=== PATIENT | female | born 1945 | race Caucasian/White ===

== ENCOUNTER 2016-05-27 07:39 | Outpatient (CLI) | payer MEDICARE, BC | END 2016-05-27 07:40 | DX: R03.0 Elevated blood-pressure reading, without diagnosis of hypertension (principal); E78.9 Disorder of lipoprotein metabolism, unspecified; M85.80 Other specified disorders of bone density and structure, unspecified site ==

== ENCOUNTER 2017-05-19 09:12 | Outpatient (CLI) | payer MEDICARE, BC ==
--- NOTE | 2017-05-19 12:26 | XRAY Report ---
THREE VIEW RIGHT SHOULDER: 05/19/2017 CLINICAL INDICATION: Numbness, tingling, decreased range of motion. FINDINGS: Frontal, oblique, scapular Y views of the right shoulder demonstrate no evidence of fracture or dislocation. The joint spaces are preserved. No radiopaque foreign body is seen in the soft tissues. IMPRESSION: NORMAL RIGHT SHOULDER. TD: 05/19/2017 12:25
== END 2017-05-19 09:13 | disposition home or self-care (01) ==
LOC: DI 09:12
PROVIDERS: ATTEND Family Medicine
DX: M75.101 Unspecified rotator cuff tear or rupture of right shoulder, not specified as traumatic (principal)

== ENCOUNTER 2017-05-28 08:00 | Outpatient (CLI) | payer MEDICARE, BC ==
[2017-05-28 12:44] LABS: BILIRUBIN,URINE NEGATIVE (NEGATIVE); GLUCOSE, URINE (UA) NEGATIVE (NEGATIVE); KETONES,URINE (UA) NEGATIVE (NEGATIVE); LEUKOCYTE ESTERASE, URINE NEGATIVE (NEGATIVE); NITRITE,URINE NEGATIVE (NEGATIVE); OCCULT BLOOD,URINE NEGATIVE (NEGATIVE); PH,URINE 6.5 PH (5.0-7.5); PROTEIN,URINE NEGATIVE (NEGATIVE); UROBILINOGEN,URINE 0.2 (NORMAL) E.U./dL (NORMAL)
[2017-05-28 12:51] LABS: CLARITY,URINE CLEAR (CLEAR)
[2017-05-28 12:52] LABS: AMORPHOUS SEDIMENT,UR Moderate /LPF; BACTERIA,URINE Few /HPF (None Seen); RBC,URINE 0-5 /HPF (0-5); SQUAMOUS EPITHELIAL CELL,UR FEW Squamous (<= Few)
== END 2017-05-28 08:01 | disposition home or self-care (01) ==
LOC: LAB.N 08:00
PROVIDERS: ATTEND Obstetrics & Gynecology
DX: N95.0 Postmenopausal bleeding (principal); N39.3 Stress incontinence (female) (male)
CPT/HCPCS: 81001

== ENCOUNTER 2017-05-30 09:52 | Outpatient (CLI) | payer MEDICARE, BC ==
--- NOTE | 2017-06-02 12:02 | DEXA Report ---
DEXA SCAN: 05/30/2017 INDICATION: Screening. TECHNIQUE: Dual energy x-ray absorptiometry (DXA) was performed on a [employer] Certified system. Regions measured are the AP spine, femoral neck, and, if needed, forearm. COMPARISON: None. In accordance with the International Society for Clinical Densitometry (ISCD) guidelines, data from previous exams may be reanalyzed using current recommendations and techniques. This is done to allow a more accurate basis for comparison with the current study. FINDINGS: The data for the lumbar spine is as follows: REGION BMD (g/cm/cm) T-SCORE Z-SCORE L1 0.923 -1.7 0.0 L2 0.970 -1.9 -0.2 L3 1.021 -1.5 0.3 L4 1.116 -0.7 1.0 TOTAL 1.013 -1.4 0.4 NOTE: All evaluable vertebrae are used for classification. The data for the hip is as follows: REGION BMD (g/cm/cm) T-SCORE Z-SCORE Neck 0.842 -1.4 0.3 TOTAL 0.883 -1.0 0.5 NOTE: The femoral neck or total proximal femur, whichever is lowest, is used for classification. IMPRESSION: THE WHO CLASSIFICATION FOR THE LUMBAR SPINE BASED ON THE INTERNATIONAL REFERENCE STANDARD IS OSTEOPENIA. THE WHO CLASSIFICATION FOR THE FEMORAL NECK BASED ON THE INTERNATIONAL REFERENCE STANDARD IS OSTEOPENIA. THE FRACTURE RISK IS INCREASED. RECOMMENDATION: Patients with diagnosis of osteoporosis or osteopenia should have regular bone mineral density assessment. For those eligible for Medicare, routine testing is allowed once every 2 years. Testing frequency can be increased for patients who have rapidly progressing disease or for those who are receiving medical therapy to restore bone mass. COMMENT: World Health Organization (WHO) definitions for osteoporosis and osteopenia: NORMAL BMD: T-score at 1.0 or higher, fracture risk is low. OSTEOPENIA BMD: T-score between 1.0 and -2.5, fracture risk is increased. OSTEOPOROSIS BMD: T-score at 2.5 or lower, fracture risk high. National Osteoporosis Foundation recommends: 1. Obtain adequate dietary calcium (at least 1200 mg per day) and vitamin D (400 -800 international units per day). 2. Participate, as appropriate, in regular weightbearing and muscle- strengthening exercise. 3. Avoid tobacco use and reduce alcohol and caffeine intake. 4. For more detailed information see the website at www.NOF.org. MTDD
== END 2017-05-30 09:53 | disposition home or self-care (01) ==
LOC: DI 09:52
PROVIDERS: ATTEND Family Medicine
DX: M85.89 Other specified disorders of bone density and structure, multiple sites (principal)
CPT/HCPCS: 77080

== ENCOUNTER 2017-05-31 11:14 | Outpatient (CLI) | payer MEDICARE, BC ==
--- NOTE | 2017-06-02 10:19 | Ultrasound Report ---
EXAM: PELVIC ULTRASOUND EXAM DATE: 05/31/2017 12:44 PM. CLINICAL HISTORY: Postmenopausal bleeding. COMPARISON: None. TECHNIQUE: Realtime transabdominal pelvic scan performed to identify the uterus and adnexa and as an overview of other pelvic structures, followed by transvaginal scan to provide greater detail of the u terus and adnexa, with static image documentation. FINDINGS: Uterus: 5.9 x 3.3 x 2 cm, volume 20.3 cc. Anteverted position. Heterogeneous overall echotexture. Masses: There is a shadowing hyperechoic echoic focus in the right fundal submucosal area, approximat melida 2 x 5 mm, suggesting calcification, uncertain clinical significance. Otherwise, no uterine mass o r fibroids identified. Endometrium: There is focal hypovascular thickened endometrium in the body area to 5.5 mm in thickne ss with fundal noncomplex endometrial fluid, 3.7 mm in thickness. The endometrium in thickness in the fundal area measured 3.2 mm in thickness; there are 2 polypoid-like nodules with basal blood flow in the posterior wall of the endometrium in the lower body or lower uterine segment, 4.3 mm and 6.7 mm and noncomplex fluid in the lower uterine segment, approximately 4.3 mm in thickness. Cervix: Unremarkable. Right Ovary: Not visualized; no adnexal mass identified. Left Ovary: 1.8 x 1.2 x 1 cm, volume 1.1 cc. Unremarkable echotexture; limited exam of the blood flow , likely due to the body habitus. Free Fluid: Minimal to small amount of noncomplex fluid. IMPRESSION: 1. Hypovascular polypoid nodules in the lower uterine segment endometrium and focal thickened endomet rium in the body area with endometrial fluid accumulation, suggesting nonspecific benign versus malig nant hypertrophic process, endometrial cancer; recommend clinical follow-up. 2. Right ovary cannot be visualized, likely due to the body habitus. Negative for right adnexal mass. 3. The visualized left ovary demonstrates no mass or cystic mass. [facility] Referring Provider Line: [phone] SITE ID: [id number]
== END 2017-05-31 11:15 | disposition home or self-care (01) ==
LOC: DI 11:14
PROVIDERS: ATTEND Obstetrics & Gynecology
DX: R93.8 Abnormal findings on diagnostic imaging of other specified body structures (principal); N84.0 Polyp of corpus uteri
CPT/HCPCS: 76830; 76856

== ENCOUNTER 2017-07-14 11:22 | Outpatient (CLI) | payer MEDICARE, BC ==
[2017-07-14 12:03] LABS: BASOPHILS % (AUTO) 0.5 %; EOSINOPHILS % (AUTO) 0.8 %; HGB - HEMOGLOBIN 14.2 g/dL (12.0-16.0); LYMPHOCYTES # (AUTO) 1.4 10^3/uL (1.5-3.5); LYMPHOCYTES % (AUTO) 21.7 %; MEAN CORPUSCULAR HEMOGLOBIN 30.1 pg (27.0-31.0); MEAN CORPUSCULAR HGB CONC 33.5 g/dL (32.0-36.0); MEAN CORPUSCULAR VOLUME 89.9 fL (81.0-99.0); MEAN PLATELET VOLUME 8.6 fL (7.9-10.8); MONOCYTES # (AUTO) 0.6 10^3/uL (0.0-1.0); MONOCYTES % (AUTO) 8.7 %; NEUTROPHILS # (AUTO) 4.5 10^3/uL (1.5-6.6); NEUTROPHILS % (AUTO) 68.3 %; PLT - PLATELET COUNT 190 10^3/uL (130-450); RED CELL DISTRIBUTION WIDTH 13.4 % (12.0-15.0); WHITE BLOOD COUNT 6.6 x10^3/uL (4.8-10.8)
[2017-07-14 12:44] LABS: BILIRUBIN,URINE NEGATIVE (NEGATIVE); GLUCOSE, URINE (UA) NEGATIVE (NEGATIVE); KETONES,URINE (UA) NEGATIVE (NEGATIVE); LEUKOCYTE ESTERASE, URINE NEGATIVE (NEGATIVE); NITRITE,URINE NEGATIVE (NEGATIVE); OCCULT BLOOD,URINE NEGATIVE (NEGATIVE); PROTEIN,URINE NEGATIVE (NEGATIVE); UROBILINOGEN,URINE 0.2 (NORMAL) E.U./dL (NORMAL)
[2017-07-14 12:46] LABS: CLARITY,URINE CLEAR (CLEAR)
== END 2017-07-14 11:23 | disposition home or self-care (01) ==
LOC: LAB 11:22
PROVIDERS: ATTEND Obstetrics & Gynecology
DX: Z01.812 Encounter for preprocedural laboratory examination (principal); N95.0 Postmenopausal bleeding; D25.9 Leiomyoma of uterus, unspecified
CPT/HCPCS: 36415; 81003; 85025; 86850; 86900; 86901

== ENCOUNTER 2017-07-16 08:25 | Day surgery (SDC) | payer MEDICARE, BC ==
--- NOTE | 2017-07-14 13:22 | PREOP HISTORY & PHYSICAL ---
DATE OF SERVICE: 07/16/2017 Physician: Harjeet Thacker MD PREOPERATIVE HISTORY AND PHYSICAL ON 07/14/2017 FOR ANTICIPATED DATE OF 07/16/2017 DIAGNOSIS: Postmenopausal bleeding; nodular growth in endometrium/endocervical canal. INTENDED PROCEDURES: Hysteroscopy with polypectomy/myomectomy; MyoSure required; dilatation and curettage. HISTORY: Patient is a 71-year-old 1, para 1 woman who had a history of postmenopausal bleeding, a brown-reddish discharge. Patient was on Vagifem at the time of the bleeding episode. She underwent an ultrasound that found a 5.5 mm endometrial thickening and 3 mm of fluid in the cavity. There were 2 polypoid nodules with basilar blood flow in the posterior wall and lower uterine segment. The nodules were approximately 5-6 cm in diameter. There was no ovarian pathology noted. Endometrial biopsy was suggested but declined. Given postmenopausal bleeding and endometrial changes, a tissue diagnosis is required. We discussed the benefits (better detection rate for endometrial malignancy and hyperplasia); the risks (blood loss, transfusion, infection, perforation, and fluid transfusion) of hysteroscopy, and alternative procedures such as endometrial biopsy. After reading several pamphlets and looking online, the patient has decided to move forward with hysteroscopy. Patient began menarche at 17 and had polyuria prior to menopause in her mid 50s. She used oral contraceptives for 15 years. Her last Pap in 2012 was normal. PAST MEDICAL HISTORY: Patient occasionally has bouts of elevated blood pressure without medication. One vaginal delivery of a 7 pound 6 ounce boy. No history of cardiovascular or chronic disease. ALLERGIES: MEDICATIONS 1. Multiple vitamins. 2. Iron. REVIEW OF SYSTEMS CONSTITUTIONAL: Negative. HEENT: Negative. CARDIOVASCULAR: Negative. RESPIRATORY: Negative. GASTROINTESTINAL: Negative. GENITOURINARY: Reference HPI. MUSCULOSKELETAL: Negative. NEUROLOGIC: Negative. PSYCHOLOGIC: Negative. FAMILY HISTORY: Breast cancer in sister at 55 and at 70. No diabetes. Cardiovascular disease, father. Hypertension, father. Confirmed no easy bleeding tendencies or thrombophilia. SOCIAL HISTORY: . No drug, tobacco, or alcohol use. Sexually active. PHYSICAL EXAMINATION GENERAL: Well groomed, pleasant. VITAL SIGNS: Posted. HEENT: Supple neck, no thyromegaly. Dentition in good repair. LUNGS: Clear to auscultation. CARDIOVASCULAR: Regular. No murmur, no gallop. BREASTS: Prior exam negative. Patient declines exam today. ABDOMEN: Flat. No tenderness or organomegaly noted. GENITOURINARY: Reference office exam. Mild vulvar atrophy and vaginal atrophy. CERVIX: No cervical lesion. No cervical motion tenderness. UTERUS: Normal size. ADNEXA: No masses. Reference ultrasound. EXTREMITIES: Nonedematous, patient has coolness and paleness in fingertips, possibly Raynaud's. NEUROLOGIC: Grossly intact. MUSCULOSKELETAL: No nodules or tenderness. Normal range of motion. PREOP LABS: Pending. ASSESSMENT: Patient reports postmenopausal bleeding and has endometrial changes evident on ultrasound. Tissue diagnosis is required. Patient desires the most assured method of diagnosis and has chosen hysteroscopy. PLAN: Hysteroscopy with MyoSure excision of nodular growth and possibly lining of the uterus. Risks, benefits, and informed consent completed. Antibiotics not required. TD: 07/14/2017 12:09
[2017-07-16] MEDS ORDERED: LACTATED RINGERS 1,000 ML IV ONE (08:37)
[2017-07-16] MEDS ORDERED: ESTROGENS, CONJUGATED CREAM 30 GM TUBE ONE (11:40)
[2017-07-16] MEDS ORDERED: ESTROGENS, CONJUGATED CREAM 30 GM TUBE VG ONE (11:44)
--- NOTE | 2017-07-16 12:05 | OPERATIVE REPORT ---
Operative Report - General Procedure Date: 07/16/17 Planned Procedure: Diagnostic hysteroscopy, probable excision of intrauterine masses; possible Pre-Op Diagnosis: Postmenopausal bleeding; intracavitary masses/nodules on ultrasound; stenot Procedure Performed: Ultrasound-guided dilation of the cervix; hysteroscopy with Myosure hysteroscopic excision of 2 small endometrial nodules/polyps Post Op Diagnosis: 2 polypoid intracavitary masses, (about 5 mm apiece), Await pathology;: Hua - Procedure Note Primary Surgeon: MD Kirstie Anesthesia Provider: Arthur Elkins certified nurse lead military analyst Anesthesia Technique: General ET tube Pathology: Endometrial polyp shavings IV Fluids (mL): 850 Estimated Blood Loss (mL): 25 Urine Output (mL): 0 Complications: None
--- NOTE | 2017-07-16 12:33 | Ultrasound Report ---
INTRAOPERATIVE PELVIC ULTRASOUND: 07/16/2017 CLINICAL INDICATION: Intraoperative guidance. TECHNIQUE/FINDINGS: Ultrasound was provided to Dr. Rodriguez for intraoperative guidance. Four spot images were obtained. IMPRESSION: INTRAOPERATIVE IMAGING FOR DR. RODRIGUEZ. TD: 07/16/2017 12:31
[2017-07-16 13:08] VITALS: BP 125/78
[2017-07-16] MEDS ORDERED: DEXAMETHASONE 4 MG/ML VIAL IVP ONE (15:14)
[2017-07-16] MEDS ORDERED: PROPOFOL 200 MG/20 ML VIAL IVP ONE (15:14)
[2017-07-16] MEDS ORDERED: KETOROLAC 30 MG/ML VIAL IVP ONE (15:14)
[2017-07-16] MEDS ORDERED: fentaNYL 100 MCG/2 ML VIAL IVP ONE (15:14)
[2017-07-16] MEDS ORDERED: MIDAZOLAM 2 MG/2 ML VIAL IVP ONE (15:14)
[2017-07-16] MEDS ORDERED: ONDANSETRON 4 MG/2 ML VIAL IVP ONE (15:14)
--- NOTE | 2017-07-16 17:43 | OPERATIVE REPORT ---
DATE OF SERVICE: 07/16/2017 Physician: Harjeet Thacker MD PREOPERATIVE DIAGNOSES 1. Postmenopausal bleeding. 2. Intracavitary masses/nodules on ultrasound. 3. Stenotic cervix. POSTOPERATIVE DIAGNOSES 1. Two polypoid intracavitary polypoid growths, await pathology. 2. Intracavitary masses/nodules on ultrasound. PROCEDURES 1. Ultrasound-guided dilation of the endocervix. 2. Hysteroscopy with hysteroscopic excision of intracavitary nodules using MyoSure. SURGEON: Harjeet Thacker MD, FACOG, FICS ANESTHESIA: Arthur Amin, certified nurse heel trimmer ANESTHESIA TYPE: General, ET tube placed. BLOOD LOSS: 25 mL or less. INTRAVENOUS FLUIDS: 850, crystalloid. URINE OUTPUT: Not known, patient voided prior to beginning procedure. HYSTEROSCOPY FLUID DEFICIT: 550, measured. DRAINS: None. Uterine packing enriched with estrogen placed. FINDINGS: External genitalia appeared to be normal, except for atrophy and narrow introitus. There was a grade 1` cystorectocele noted with uterine descent. The Anteverted small uterus and cervical barrel was palpated in the midline . Contained within right vaginal fornix was a mucosal dimple unaligned with the cervical barrel. The actual cervical os was completely covered with vaginal mucosa and stenosed completely closed. Within the uterine cavity, there were 2 small polypoid masses that appeared to be cauliflowers in the lower uterine segment.. Await final pathology. The upper portion of the uterine cavity was not clearly visualized PREOP CONFERENCE: Prior to procedure, I met with the patient and her and discussed her ultrasound findings and history of postmenopausal bleeding, and the need for tissue diagnosis. Since her cervix was severely stenotic, hysteroscopy seemed to be the safest and most effective option. We reviewed the risks inclusive of blood loss hemorrhage, transfusion, infection, perforation, fluid embolization and inconclusive results. All the informed consent paperwork had been previously signed and patient had no further questions. TECHNIQUE: Patient was taken to the operating room and placed in supine position for administration of general anesthesia. She was uneventfully induced and intubated. She was moved to the high dorsal lithotomy position on candycane stirrups.She was prepped and draped in the customary sterile fashion. Vann was not necessary because patient emptied her bladder immediately prior to coming to the operating room.Time-out briefing was done per protocol. We began hysteroscopy with a detailed inspection and palpation of the vagina cervix and uterus. Care was taken to determine the axis of the cervix and its relationship to the uterine body. The upper vagina was carefully inspected to determine the most likely position of the cervical os. Additionally, a sounding probe was used to define the lower limits of the vagina in relationship to the cervical barrel. Clamshell speculum was placed and the cervix and upper vagina visualized. The right vaginal fornix dimple was judged not to be a likely location for the cervical os. At the distal cervical barrel , the apex was covered with vaginal mucosa with a transverse fold slightly beyond the diameter. Using Metzenbaum scissors and Kitner this flap of vaginal mucosa was from the apex of the cervical barrel and gently rolled back to reveal a small stenotic dimple. Using a fine probe this dimple was gently developed to accept the probe along the anticipated axis of the cervical barrel. Next ultrasound was brought to the operating room to inspect the position of the fine probe before further dilation was attempted. Ultrasound images demonstrated the sound was clearly in middle of the cervix on her trajectory leading to the endometrial cavity. A single-tooth tenaculum was placed on the anterior cervical lip. The fine probe was removed and then using Hegar probes in a sequential fashion this passageway was further dilated. Using Hegar dilators, the os was uneventfully dilated to 6. Cervical mucus was seen to extrude during the dilation process. Again the ultrasound was brought to the operating room and the probe position assessed. The #6 Hegar probe passed through mid cervix and into the lower uterine segment. Under direct visualization the 30 video hysteroscope was inserted through the endocervical canal and into the lower uterine segment. The 2 polypoid growths documented on prior ultrasound were visualized and photographed. The mild sure was then introduced through the central operating port of the hysteroscope and the 2 aforementioned polyps removed in total. The hysteroscope then was inserted into the cavity but visualization was poor. There was fibrous debris. My assure removal of the 2 nodules mentioned in ultrasound could not be safely accomplished. The procedure was then concluded. All instruments were removed. All sponge needle and instrument counts were confirmed as correct. Patient was uneventfully aroused from general anesthesia and taken to the recovery room in good condition. The patient did well postoperatively requiring little more than Motrin for pain control. She was given complete warning sign and callback instructions. She will be seen in 2 weeks to review pathology. TD: 07/16/2017 13:12 MARION
== END 2017-07-16 08:26 | disposition home or self-care (01) ==
LOC: SDS 08:25
PROVIDERS: ATTEND Obstetrics & Gynecology
PROC: 0UDB8ZX Extraction of Endometrium, Via Natural or Artificial Opening Endoscopic, Diagnostic (ICD-10-PCS; 2017-07-16)
PROC: 0UBC8ZX Excision of Cervix, Via Natural or Artificial Opening Endoscopic, Diagnostic (ICD-10-PCS; principal; 2017-07-16 09:30)
DX: N84.1 Polyp of cervix uteri (principal); N95.0 Postmenopausal bleeding; N88.2 Stricture and stenosis of cervix uteri
CPT/HCPCS: 58558; 76856; A9270; J7120; 88305

== ENCOUNTER → 2018-01-19 | Outpatient (CLI) | payer MEDICARE, BC ==
[2018-01-19 12:42] LABS: CALCIUM 9.1 mg/dL (8.5-10.3); CREATININE 0.7 mg/dL (0.4-1.0)
== END ==
LOC: LAB.WCP 08:02
PROVIDERS: ATTEND Family Medicine
DX: I10 Essential (primary) hypertension (principal)
CPT/HCPCS: 36415; 80048

== ENCOUNTER 2018-01-30 10:08 | Outpatient (CLI) | payer MEDICARE, BC ==
--- NOTE | 2018-02-02 08:25 | Mammography Report ---
Reason: SCREENING MAMMO Procedure Date: 01/30/2018 Accession Number: [id number] / [id number] Procedure: MGN - Screening Mammo Dig Bilat CPT Code: FULL RESULT: EXAM: Screening Mammo Dig Bilat DATE: 01/30/2018 10:28 AM CLINICAL HISTORY: 72-year-old female with family history of breast cancer in a sister around the age of 60, an aunt around the age of 60 and multiple cousins for screening. TECHNIQUE: Bilateral CC, laterally exaggerated CC, MLO views were obtained. COMPARISON: 01/08/2017, 12/07/2015, 09/28/2014, 10/07/2013. FINDINGS: The breasts demonstrate heterogeneously dense fibroglandular parenchyma bilaterally. No suspicious masses, clustered microcalcifications, or regions of architectural distortion are identified. IMPRESSION: Negative examination RECOMMENDATION: Routine annual screening unless otherwise clinically indicated. BIRADS CATEGORY 1: Negative STANDARD QUALIFYING STATEMENTS: 1. This examination was reviewed with the aid of Computer-Aided Detection (CAD). 2. A negative or benign imaging report should not delay biopsy if clinically suspicious findings are present. Consider surgical consultation if warranted. More than 5% of cancers are not identified by imaging. 3. Dense breasts may obscure an underlying neoplasm. 4. This examination was reviewed without the aid of 3D breast imaging (tomosynthesis).
== END 2018-01-30 10:09 | disposition home or self-care (01) ==
LOC: DI.N 10:08
DX: Z12.31 Encounter for screening mammogram for malignant neoplasm of breast (principal); Z80.3 Family history of malignant neoplasm of breast
CPT/HCPCS: 77067

== ENCOUNTER 2018-08-11 07:55 | Outpatient (CLI) | payer MEDICARE, BC ==
[2018-08-11 13:39] LABS: BASOPHILS % (AUTO) 0.9 %; EOSINOPHILS # (AUTO) 0.1 10^3/uL (0.0-0.7); EOSINOPHILS % (AUTO) 1.8 %; HGB - HEMOGLOBIN 13.3 g/dL (12.0-16.0); LYMPHOCYTES # (AUTO) 1.4 10^3/uL (1.5-3.5); LYMPHOCYTES % (AUTO) 28.8 %; MEAN CORPUSCULAR HEMOGLOBIN 30.2 pg (27.0-31.0); MEAN CORPUSCULAR HGB CONC 33.1 g/dL (32.0-36.0); MEAN CORPUSCULAR VOLUME 91.2 fL (81.0-99.0); MEAN PLATELET VOLUME 9.2 fL (7.9-10.8); MONOCYTES # (AUTO) 0.4 10^3/uL (0.0-1.0); MONOCYTES % (AUTO) 8.7 %; NEUTROPHILS # (AUTO) 2.9 10^3/uL (1.5-6.6); NEUTROPHILS % (AUTO) 59.8 %; PLT - PLATELET COUNT 190 10^3/uL (130-450); RED BLOOD COUNT 4.41 10^6/uL (4.20-5.40); RED CELL DISTRIBUTION WIDTH 13.5 % (12.0-15.0); WHITE BLOOD COUNT 4.9 x10^3/uL (4.8-10.8)
[2018-08-11 13:57] LABS: ALBUMIN 4.2 g/dL (3.2-5.5); ALBUMIN/GLOBULIN RATIO 1.6 (1.0-2.2); ALKALINE PHOSPHATASE 64 IU/L (42-121); ALT ALANINE AMINOTRANSFERASE 17 IU/L (10-60); AST ASPARTATE AMINOTRANSFERASE 24 IU/L (10-42); BILIRUBIN,TOTAL 0.8 mg/dL (0.2-1.0); BUN - BLOOD UREA NITROGEN 17 mg/dL (6-20); CALCIUM 9.3 mg/dL (8.5-10.3); CARBON DIOXIDE - CO2 29 mmol/L (21-32); CHLORIDE 103 mmol/L (101-111); CHOL/HDL RATIO 2.8 (<4.4); CHOLESTEROL 231 mg/dL; CREATININE 0.7 mg/dL (0.4-1.0); GFR - MDRD 83 (>89); GLUCOSE 92 mg/dL (70-100); HDL CHOLESTEROL 82 mg/dL; LDL CHOLESTEROL,CALCULATED 125 mg/dL; LDL/HDL RATIO 1.5 (<4.4); SODIUM 139 mmol/L (135-145); TOTAL PROTEIN 6.8 g/dL (6.7-8.2); VLDL CHOLESTEROL 24 mg/dL
== END 2018-08-11 07:56 | disposition home or self-care (01) ==
LOC: LAB.WCP 07:55
PROVIDERS: ATTEND Family Medicine
DX: I10 Essential (primary) hypertension (principal); E78.5 Hyperlipidemia, unspecified
CPT/HCPCS: 36415; 80053; 80061; 83721; 84443; 85025

== ENCOUNTER 2019-02-03 08:49 | Outpatient (CLI) | payer MEDICARE, BC ==
--- NOTE | 2019-02-03 10:02 | Mammography Report ---
Reason: screening mammo Procedure Date: 02/03/2019 Accession Number: [id number] / [id number] Procedure: MGN - Screening Mammo Dig Bilat CPT Code: Final Report FULL RESULT: EXAM: Screening Mammo Dig Bilat DATE: 02/03/2019 9:24 AM CLINICAL HISTORY: Screening encounter. Family history of breast cancer in a sister at the age of 60. TECHNIQUE: (B) - Bilateral CC and MLO views were obtained. COMPARISON: 01/30/2018 through 08/07/2009. PARENCHYMAL PATTERN: (A) - The breast(s) demonstrate(s) scattered fibroglandular densities. FINDINGS: There are no suspicious masses, calcifications, or areas of distortion. IMPRESSION: Negative examination. BI-RADS category 1. RECOMMENDATION: (ANNUAL) - Recommend routine annual screening mammography. BI-RADS CATEGORY: (1) - Negative. STANDARD QUALIFYING STATEMENTS: 1. This examination was not reviewed with the aid of Computer-Aided Detection (CAD). 2. A negative or benign imaging report should not preclude biopsy if clinically suspicious findings are present. 3. Dense breasts may obscure an underlying neoplasm. 4. This examination was reviewed without the aid of 3D breast imaging (tomosynthesis).
== END 2019-02-03 08:50 | disposition home or self-care (01) ==
LOC: DI.N 08:49
DX: Z12.31 Encounter for screening mammogram for malignant neoplasm of breast (principal); Z80.3 Family history of malignant neoplasm of breast
CPT/HCPCS: 77067

== ENCOUNTER 2020-03-22 07:26 | Outpatient (CLI) | payer MEDICARE, BC ==
[2020-03-22 11:58] LABS: BASOPHILS % (AUTO) 0.8 %; EOSINOPHILS # (AUTO) 0.1 10^3/uL (0.0-0.7); EOSINOPHILS % (AUTO) 1.5 %; HGB - HEMOGLOBIN 13.9 g/dL (12.0-16.0); LYMPHOCYTES # (AUTO) 1.4 10^3/uL (1.5-3.5); LYMPHOCYTES % (AUTO) 33.8 %; MEAN CORPUSCULAR HEMOGLOBIN 30.4 pg (27.0-31.0); MEAN CORPUSCULAR HGB CONC 32.9 g/dL (32.0-36.0); MEAN CORPUSCULAR VOLUME 92.6 fL (81.0-99.0); MEAN PLATELET VOLUME 11.5 fL (7.9-10.8); MONOCYTES # (AUTO) 0.4 10^3/uL (0.0-1.0); NEUTROPHILS # (AUTO) 2.1 10^3/uL (1.5-6.6); NEUTROPHILS % (AUTO) 52.6 %; PLT - PLATELET COUNT 196 10^3/uL (130-450); RED BLOOD COUNT 4.57 10^6/uL (4.20-5.40); RED CELL DISTRIBUTION WIDTH 12.6 % (12.0-15.0)
[2020-03-22 12:12] LABS: ALBUMIN 4.3 g/dL (3.2-5.5); ALBUMIN/GLOBULIN RATIO 1.7 (1.0-2.2); ALKALINE PHOSPHATASE 60 IU/L (42-121); ALT ALANINE AMINOTRANSFERASE 19 IU/L (10-60); AST ASPARTATE AMINOTRANSFERASE 26 IU/L (10-42); BILIRUBIN,TOTAL 0.9 mg/dL (0.2-1.0); BUN - BLOOD UREA NITROGEN 19 mg/dL (6-20); CALCIUM 9.5 mg/dL (8.5-10.3); CARBON DIOXIDE - CO2 28 mmol/L (21-32); CHLORIDE 106 mmol/L (101-111); CHOL/HDL RATIO 2.9 (<4.4); CHOLESTEROL 226 mg/dL; CREATININE 0.7 mg/dL (0.4-1.0); GLUCOSE 94 mg/dL (70-100); HDL CHOLESTEROL 78 mg/dL; LDL CHOLESTEROL,CALCULATED 123 mg/dL; LDL/HDL RATIO 1.6 (<4.4); SODIUM 140 mmol/L (135-145); TOTAL PROTEIN 6.8 g/dL (6.7-8.2); VLDL CHOLESTEROL 25 mg/dL
== END 2020-03-22 07:27 | disposition home or self-care (01) ==
LOC: LAB.N 07:26
PROVIDERS: ATTEND Family Medicine
DX: I10 Essential (primary) hypertension (principal); M85.80 Other specified disorders of bone density and structure, unspecified site; E78.5 Hyperlipidemia, unspecified
CPT/HCPCS: 36415; 80053; 80061; 83721; 84443; 85025

== ENCOUNTER 2020-06-20 08:23 | Outpatient (CLI) | payer MEDICARE, BC ==
--- NOTE | 2020-06-21 09:38 | Mammography Report ---
BILATERAL DIGITAL SCREENING MAMMOGRAM 3D/2D: 06/20/2020 CLINICAL: Family history of breast cancer. Routine screening. Comparison is made to exams dated: 02/03/2019 mammogram, 01/30/2018 mammogram, 01/08/2017 mammogram, 12/07/2015 mammogram, 09/28/2014 mammogram, and 10/07/2013 mammogram - [facility]. T he tissue of both breasts is heterogeneously dense. This may lower the sensitivity of mammography. No significant masses, calcifications, or other findings are seen in either breast. There has been no significant interval change. IMPRESSION: NEGATIVE There is no mammographic evidence of malignancy. A 1 year screening mammogram is recommended. This exam was interpreted at Station ID: [id number]. NOTE: For mammograms, a report in lay terms will be sent to the patient. Approximately 15% of breast malignancies will not be visualized mammographically. In the management of a palpable breast mass, a negative mammogram must not discourage biopsy of a clinically suspicious lesion. Electronically Signed By: Porfirio Conner M.D. [email or web address]:06/20/2020 09:02:14 ACR BI-RADS Category 1: Negative 3341F PARENCHYMAL PATTERN: (D) - The breast(s) demonstrate(s) heterogeneously dense fibroglandular bren lopez. BI-RADS CATEGORY: (1) - 1 RECOMMENDATION: (ANNUAL) - Recommend routine annual screening mammography. [id number] 1 year screening LATERALITY: (B)
== END 2020-06-20 08:24 | disposition home or self-care (01) ==
LOC: DI.N 08:23
DX: Z12.31 Encounter for screening mammogram for malignant neoplasm of breast (principal); Z80.3 Family history of malignant neoplasm of breast

== ENCOUNTER 2021-07-16 08:40 | Outpatient (CLI) | payer MEDICARE, BC ==
[2021-07-16 12:42] LABS: BASOPHILS % (AUTO) 0.9 %; EOSINOPHILS # (AUTO) 0.1 10^3/uL (0.0-0.7); EOSINOPHILS % (AUTO) 1.9 %; HCT - HEMATOCRIT 43.2 % (37.0-47.0); LYMPHOCYTES # (AUTO) 1.1 10^3/uL (1.5-3.5); LYMPHOCYTES % (AUTO) 26.6 %; MEAN CORPUSCULAR HEMOGLOBIN 30.4 pg (27.0-31.0); MEAN CORPUSCULAR HGB CONC 32.4 g/dL (32.0-36.0); MEAN CORPUSCULAR VOLUME 93.9 fL (81.0-99.0); MEAN PLATELET VOLUME 10.9 fL (7.9-10.8); MONOCYTES # (AUTO) 0.5 10^3/uL (0.0-1.0); MONOCYTES % (AUTO) 10.6 %; NEUTROPHILS # (AUTO) 2.6 10^3/uL (1.5-6.6); PLT - PLATELET COUNT 201 10^3/uL (130-450); WHITE BLOOD COUNT 4.3 x10^3/uL (4.8-10.8)
[2021-07-16 13:10] LABS: THYROID STIMULATING HORMONE 1.01 uIU/mL (0.34-5.60)
[2021-07-16 13:13] LABS: ALBUMIN 4.3 g/dL (3.2-5.5); ALBUMIN/GLOBULIN RATIO 1.6 (1.0-2.2); ALKALINE PHOSPHATASE 57 IU/L (42-121); ALT ALANINE AMINOTRANSFERASE 19 IU/L (10-60); AST ASPARTATE AMINOTRANSFERASE 25 IU/L (10-42); BILIRUBIN,TOTAL 0.7 mg/dL (0.2-1.0); BUN - BLOOD UREA NITROGEN 21 mg/dL (6-20); CALCIUM 9.7 mg/dL (8.5-10.3); CARBON DIOXIDE - CO2 29 mmol/L (21-32); CHLORIDE 103 mmol/L (101-111); CHOL/HDL RATIO 2.8 (<4.4); CHOLESTEROL 225 mg/dL; CREATININE 0.7 mg/dL (0.4-1.0); GFR - MDRD 82 (>89); GLUCOSE 74 mg/dL (70-100); HDL CHOLESTEROL 81 mg/dL; LDL CHOLESTEROL,CALCULATED 120 mg/dL; LDL/HDL RATIO 1.5 (<4.4); POTASSIUM 4.2 mmol/L (3.5-5.0); SODIUM 142 mmol/L (135-145); TRIGLYCERIDES 121 mg/dL; VLDL CHOLESTEROL 24 mg/dL
== END 2021-07-16 08:41 | disposition home or self-care (01) ==
LOC: LAB.N 08:40
PROVIDERS: ATTEND Family Medicine
DX: E78.5 Hyperlipidemia, unspecified (principal); I10 Essential (primary) hypertension
CPT/HCPCS: 36415; 80053; 80061; 83721; 84443; 85025

== ENCOUNTER 2021-08-08 12:06 | Emergency (ER) | payer MEDICARE, BC ==
[2021-08-08 12:31] LABS: BASOPHILS % (AUTO) 0.5 %; EOSINOPHILS % (AUTO) 0.2 %; HCT - HEMATOCRIT 42.4 % (37.0-47.0); HGB - HEMOGLOBIN 14.2 g/dL (12.0-16.0); LYMPHOCYTES # (AUTO) 0.8 10^3/uL (1.5-3.5); LYMPHOCYTES % (AUTO) 12.2 %; MEAN CORPUSCULAR HEMOGLOBIN 30.7 pg (27.0-31.0); MEAN CORPUSCULAR HGB CONC 33.5 g/dL (32.0-36.0); MEAN CORPUSCULAR VOLUME 91.6 fL (81.0-99.0); MEAN PLATELET VOLUME 10.2 fL (7.9-10.8); MONOCYTES # (AUTO) 0.3 10^3/uL (0.0-1.0); NEUTROPHILS % (AUTO) 81.8 %; PLT - PLATELET COUNT 198 10^3/uL (130-450); RED BLOOD COUNT 4.63 10^6/uL (4.20-5.40); RED CELL DISTRIBUTION WIDTH 12.3 % (12.0-15.0); WHITE BLOOD COUNT 6.2 x10^3/uL (4.8-10.8)
--- NOTE | 2021-08-08 12:31 | ED Physician Documentation ---
PD HPI ALTERED MENTAL STATUS - Stated complaint Stated Complaint: MEMORY LOSS - Chief complaint Chief Complaint: Neuro - Additional information Additional information: Patient is 75-year-old female presenting to the emergency department with acute altered mentation. Accompanied by who is present at bedside. Reports that approximately 10 AM today patient became acutely confused and disorientated. Was unable to remember the activity for the last 24 hours. No facial droop, slurring of speech or other focal or lateralizing neurologic signs reported by the patient's . No previous episodes to this in the past. Past medical significant for hypertension and dyslipidemia. Review of Systems Unable to obtain: AMS PD PAST MEDICAL HISTORY - Past Medical History Past Medical History: Yes Cardiovascular: Hypertension, High cholesterol Respiratory: None Endocrine/Autoimmune: None GI: GERD : Incontinence HEENT: Chronic vision loss Psych: None Musculoskeletal: Osteoarthritis, Other Derm: None - Past Surgical History General: Colonoscopy - Present Medications Home Medications: Ambulatory Orders Medication Instructions Recorded Confirmed Aspirin 81 mg PO DAILY 07/14/17 07/16/17 Calcium Carbonate/Vitamin D3 1 each PO TID 07/14/17 07/16/17 [Calcium 600 + Vit D 400 Tablet] Multivitamin [Multiple Vitamins] 1 each PO DAILY 07/14/17 07/16/17 [place]-3/Dha/Epa/Fish Oil [Fish Oil 1 each PO DAILY 07/14/17 07/16/17 1,000 mg Softgel] - Allergies Allergies/Adverse Reactions: Allergies Allergy/AdvReac Type Severity Reaction Status Date / Time No Known Drug Allergies Allergy Verified 07/14/17 11:33 - Social History Does the pt smoke?: No Smoking Status: Never smoker PD ED PE NORMAL - Vitals Vital signs reviewed: Yes - General General: No acute distress - HEENT HEENT: Atraumatic - Neck Neck: Supple, no meningeal sign - Cardiac Cardiac: RRR, No gallop - Respiratory Respiratory: No respiratory distress, Clear bilaterally - Abdomen Abdomen: Normal bowel sounds, Non tender - Female Female : Deferred - Rectal Rectal: Deferred - Derm Derm: Normal color - Extremities Extremities: No deformity - 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 No: Hyperacute T waves, T wave inversion Computer interpretation: Agree with computer - Labs Labs: Laboratory Tests 08/08/21 08/08/21 08/08/21 12:25 12:27 12:27 WBC 6.2 RBC 4.63 Hgb 14.2 Hct 42.4 MCV 91.6 MCH 30.7 MCHC 33.5 RDW 12.3 Plt Count 198 MPV 10.2 Neut # (Auto) 5.0 Lymph # (Auto) 0.8 L [place] # (Auto) 0.3 Eos # (Auto) 0.0 Baso # (Auto) 0.0 Absolute Nucleated RBC 0.00 Nucleated RBC % 0.0 PT INR VBG pH VBG pCO2 VBG pO2 VBG HCO3 VBG Total CO2 VBG O2 Saturation VBG Base Excess Sodium 140 Potassium 3.7 Chloride 103 Carbon Dioxide 27 Anion Gap 10.0 BUN 20 Creatinine 0.8 Estimated GFR (MDRD) 70 L Glucose 107 H POC Whole Bld Glucose 98 Calcium 9.8 Total Bilirubin 0.5 AST 27 ALT 23 Alkaline Phosphatase 62 Total Protein 7.4 Albumin 4.6 Globulin 2.8 Albumin/Globulin Ratio 1.6 Lipase 42 TSH Urine Color Urine Clarity Urine pH Ur Specific [place] Urine Protein Urine Glucose (UA) Urine Ketones Urine Occult Blood Urine Nitrite Urine Bilirubin Urine Urobilinogen Ur Leukocyte Esterase Ur Microscopic Review Urine Culture Comments Ethyl Alcohol SARS-CoV-2 (PCR) 08/08/21 08/08/21 08/08/21 12:45 12:45 12:45 WBC RBC Hgb Hct MCV MCH MCHC RDW Plt Count MPV Neut # (Auto) Lymph # (Auto) [place] # (Auto) Eos # (Auto) Baso # (Auto) Absolute Nucleated RBC Nucleated RBC % PT 12.3 INR 1.1 VBG pH VBG pCO2 VBG pO2 VBG HCO3 VBG Total CO2 VBG O2 Saturation VBG Base Excess Sodium Potassium Chloride Carbon Dioxide Anion Gap BUN Creatinine Estimated GFR (MDRD) Glucose POC Whole Bld Glucose Calcium Total Bilirubin AST ALT Alkaline Phosphatase Total Protein Albumin Globulin Albumin/Globulin Ratio Lipase TSH 0.91 Urine Color Urine Clarity Urine pH Ur Specific [place] Urine Protein Urine Glucose (UA) Urine Ketones Urine Occult Blood Urine Nitrite Urine Bilirubin Urine Urobilinogen Ur Leukocyte Esterase Ur Microscopic Review Urine Culture Comments Ethyl Alcohol < 5.0 SARS-CoV-2 (PCR) 08/08/21 08/08/21 08/08/21 12:45 12:49 13:45 WBC RBC Hgb Hct MCV MCH MCHC RDW Plt Count MPV Neut # (Auto) Lymph # (Auto) [place] # (Auto) Eos # (Auto) Baso # (Auto) Absolute Nucleated RBC Nucleated RBC % PT INR VBG pH 7.378 VBG pCO2 44.3 VBG pO2 29.5 VBG HCO3 25.5 VBG Total CO2 26.9 VBG O2 Saturation 61.0 VBG Base Excess 0.1 Sodium Potassium Chloride Carbon Dioxide Anion Gap BUN Creatinine Estimated GFR (MDRD) Glucose POC Whole Bld Glucose Calcium Total Bilirubin AST ALT Alkaline Phosphatase Total Protein Albumin Globulin Albumin/Globulin Ratio Lipase TSH Urine Color YELLOW Urine Clarity CLEAR Urine pH 6.5 Ur Specific [place] <=1.005 Urine Protein NEGATIVE Urine Glucose (UA) NEGATIVE Urine Ketones NEGATIVE Urine Occult Blood TRACE-INTA Urine Nitrite NEGATIVE Urine Bilirubin NEGATIVE Urine Urobilinogen 0.2 (NORMAL) Ur Leukocyte Esterase NEGATIVE Ur Microscopic Review NOT INDICATED Urine Culture Comments NOT INDICATED Ethyl Alcohol SARS-CoV-2 (PCR) NOT DETECTED PD MEDICAL DECISION MAKING - ED course Complexity details: reviewed old records, reviewed results, d/w patient, d/w data processing systems consultant ED course: Patient is 75-year-old female who presented to the emergency department with acute confusion as well as amnesia for the last 24 hours. Disorientated to time on arrival but otherwise no focal or lateralizing neurologic signs appreciated on exam. Normal blood sugar. Given that she was within 4 hours of the onset of her symptoms I initiated stroke protocol. CTA head and neck was obtained which was negative for any acute abnormality. Comprehensive labs and urine analysis were also negative for any abnormal finding. I consulted with both the Neurologic team at [facility] as well as with the telestroke neurologist. Per the recommendation we obtained a stat MRI which was negative for any indications of infarct. Patient's confusion and amnesia appeared to clear while in the emergency department. She was monitored for several hours and found to be resting comfortably and in no acute distress and with no further issues with her thinking or memory. At this time I will discharge for follow-up with primary care as needed. Otherwise clear return precautions and follow-up instructions were given prior to discharge. Departure - Departure Disposition: 01 Home, Self Care Clinical Impression: Altered mental status Comments: Thank you for allowing us to care for you today [facility]. I am very glad that you are feeling better. All the testing performed in the emergency department today including the blood work, EKG, urine analysis the CT scans of your head as well as the MRI did not show any acute abnormality. Please drink plenty of fluids and get plenty of rest. Please follow-up with your primary care doctor soon as possible. If anytime you develop any new or worsening symptoms or if you have recurrent episode of amnesia or clouded or confused thinking please return to the emergency department immediately for further evaluation and treatment.
[2021-08-08] MEDS ORDERED: IOVERSOL 320 100 ML VIAL IVP ONE ×2 (12:41→13:12)
[2021-08-08 12:47] LABS: ALBUMIN 4.6 g/dL (3.2-5.5); ALBUMIN/GLOBULIN RATIO 1.6 (1.0-2.2); BILIRUBIN,TOTAL 0.5 mg/dL (0.2-1.0); CALCIUM 9.8 mg/dL (8.5-10.3); CREATININE 0.8 mg/dL (0.4-1.0); POTASSIUM 3.7 mmol/L (3.5-5.0); TOTAL PROTEIN 7.4 g/dL (6.7-8.2)
--- NOTE | 2021-08-08 12:48 | CT Report ---
PROCEDURE: Head W/O Stroke Protocol INDICATIONS: Neuro deficit, acute, stroke suspected TECHNIQUE: Noncontrast 4.5 mm thick angled axial sections acquired from the foramen magnum to the vertex, with c oronal reformats. For radiation dose reduction, the following was used: automated exposure control, adjustment of mA and/or kV according to patient size. COMPARISON: FINDINGS: Image quality: Excellent. CSF spaces: Basal cisterns are patent. No extra-axial fluid collections. Ventricles are normal in size and shape. Brain: No midline shift. No intracranial masses or hemorrhage. Shankar-white matter interface is norm al. Skull and face: Calvarium and visualized facial bones are intact, without suspicious lesions. Sinuses: Visualized sinuses and mastoids are clear. IMPRESSION: No evidence of acute intracranial process. Above discussed with DONNY RODRIGUEZ at the time of dictation on 08/08/21 at 12:46 hours This study fulfills neurological imaging criteria for inclusion or exclusion of acute stroke therapie s based on available published neurological imaging guidelines. Reviewed by: Macho Ramirez MD on 08/08/2021 12:47 PM PDT Approved by: Macho Ramirez MD on 08/08/2021 12:47 PM PDT Station ID: [id number]
[2021-08-08 12:59] LABS: VBG BASE EXCESS 0.1 mmol/L (-2 - +2); VBG HCO3 25.5 mmol/L (23-28); VBG PCO2 44.3 mmHg (41-51); VBG PH 7.378 (7.31-7.41); VBG PO2 29.5 mmHg (25-47); VBG TOTAL CO2 26.9 mmol/L (24-29)
--- NOTE | 2021-08-08 13:03 | CT Report ---
PROCEDURE: ANGIO NECK W INDICATIONS: Acute memory loss CONTRAST: IV CONTRAST: Optiray 320 ml: 80 PO CONTRAST: *NO PO CONTRAST TECHNIQUE: After the administration of intravenous contrast, 1.5 mm axial sections acquired from the aortic arch to the [place]. Coronal 3-D maximum intensity projection (MIP) and/or volume rendering ref ormats were then performed. For radiation dose reduction, the following was used: automated exposur e control, adjustment of mA and/or kV according to patient size. COMPARISON: None. FINDINGS: Image quality: Excellent. Carotid system: The great vessels demonstrate a conventional anatomy as they arise from the aortic a rc. The origins of the common carotid arteries appear patent. The common carotid arteries demonstr ate normal calibers and courses. The bifurcation regions appear normal bilaterally. The internal ca rotid arteries demonstrate normal caliber and course. Posterior circulation: The origins of the vertebral arteries appear patent. The more superior porti ons of the vertebral arteries demonstrate normal course and caliber. They join to form a normal appe aring basilar artery. Soft tissues: Visualized neck soft tissues demonstrate no suspicious abnormalities. The thyroid is normal in size and there are no incidental findings. Bones: No suspicious bony lesions. Visualized cervical spine appears normally aligned. Moderate to severe cervical spondylitic change. IMPRESSION: Unremarkable CTA neck. Widely patent carotids. The estimate of stenosis included in the report of the imaging study was calculated using the NASCET method Above discussed with DONNY RODRIGUEZ at the time of dictation on 08/08/2021 at 1259 hours. CLINICAL RECOMMENDATION STATEMENTS: In patients <35 years with an ITN detected on CT, MRI, or extrathyroidal ultrasound, the Committee re commends further evaluation with dedicated thyroid ultrasound if the nodule is "e1 cm and has no susp icious imaging features, and if the patient has normal life expectancy. In patients "e35 years with an ITN detected on CT, MRI, or extrathyroidal ultrasound, the Committee r ecommends further evaluation with dedicated thyroid ultrasound if the nodule is "e1.5 cm and has no s uspicious imaging features, and if the patient has normal life expectancy. (ACR, 2014) Reviewed by: Macho Ramirez MD on 08/08/2021 1:01 PM PDT Approved by: Macho Ramirez MD on 08/08/2021 1:01 PM PDT Station ID: [id number]
--- NOTE | 2021-08-08 13:03 | CT Report ---
PROCEDURE: ANGIO HEAD W/WO INDICATIONS: Acute memory loss CONTRAST: IV CONTRAST: Optiray 320 ml: 80 PO CONTRAST: *NO PO CONTRAST TECHNIQUE: After the administration of intravenous contrast, 1 mm thick sections acquired through the [place]. Postcontrast 4.5 mm thick sections then re-acquired from the foramen magnum to the vertex. 3-dimensional hdjrsoe-mtocmrono-kvjbhuipbk (MIP) and/or volume rendering reformats were acquired of t he central intracranial vasculature. For radiation dose reduction, the following was used: automate d exposure control, adjustment of mA and/or kV according to patient size. COMPARISON: CT head from the same date, CT angiogram of the neck from the same date FINDINGS: Image quality: Excellent. Anterior circulation: Intracranial internal carotid arteries are normal in size and flow. The flow within the paired anterior cerebral arteries is normal and symmetric. The flow within the middle cer ebral arteries is normal and symmetric. The anterior communicating artery is seen. No aneurysms are seen. Posterior circulation: Visualized portions of the vertebral arteries demonstrate normal caliber, and join to form a normal appearing basilar artery. Flow within the posterior cerebral arteries is norm al and symmetric. No aneurysms are seen. CSF spaces: Ventricles are normal in size and shape. Basal cisterns are patent. No extra-axial flu id collections. Brain: No midline shift. No intracranial bleeds or masses. Shankar-white matter interface appears int act. Skull and face: Calvarium and facial bones appear intact, without suspicious lesions. Sinuses: Visualized sinuses and mastoids are clear. IMPRESSION: 1. No evidence of acute stroke, hemorrhage, or mass. 2. Unremarkable CTA head. No stenosis, aneurysm, occlusion, or focal filling defect. Comment: Please refer to separate report for CT angiogram of the neck findings. Above discussed with DONNY RODRIGUEZ at the time of dictation on 08/08/2021 at 1259 hours. Reviewed by: Macho Ramirez MD on 08/08/2021 1:01 PM PDT Approved by: Macho Ramirez MD on 08/08/2021 1:01 PM PDT Station ID: [id number]
[2021-08-08 13:06] LABS: INR 1.1 (0.8-1.2); PT - PROTHROMBIN TIME 12.3 secs (9.9-12.6)
[2021-08-08 13:53] LABS: BILIRUBIN,URINE NEGATIVE (NEGATIVE); GLUCOSE, URINE (UA) NEGATIVE (NEGATIVE); KETONES,URINE (UA) NEGATIVE (NEGATIVE); LEUKOCYTE ESTERASE, URINE NEGATIVE (NEGATIVE); NITRITE,URINE NEGATIVE (NEGATIVE); OCCULT BLOOD,URINE TRACE-INTA (NEGATIVE); PH,URINE 6.5 PH (5.0-7.5); PROTEIN,URINE NEGATIVE (NEGATIVE); UROBILINOGEN,URINE 0.2 (NORMAL) E.U./dL (NORMAL)
[2021-08-08 14:00] LABS: CLARITY,URINE CLEAR (CLEAR)
--- NOTE | 2021-08-08 16:47 | MRI Report ---
PROCEDURE: Brain W/O INDICATIONS: Acute TIA TECHNIQUE: Noncontrast axial T1 spin echo, axial T2 fast spin echo, sagittal and axial FLAIR, coronal T2 fast sp in echo, axial gradient echo, axial diffusion and ADC through the brain. COMPARISON: CT head, CTA head and neck 08/08/2021 FINDINGS: Image quality: Excellent. CSF Spaces: Basal cisterns are patent. No extra-axial fluid collections. Ventricles are normal in size and shape. Brain: No intracranial masses or hemorrhage. Shankar/white matter interface is normal. Brainstem appe ars normal. Diffusion-weighted images demonstrate no acute ischemic insult. No chronic ischemic ins ults. Normal intravascular flow voids are present. Skull and face: Calvarium has normal marrow signal. Orbits appear normal. Sinuses: Sinuses and mastoids are clear. IMPRESSION: 1. No acute intracranial process. No acute ischemia. 2. Mild to moderate atrophy and chronic microvascular ischemic changes. Reviewed by: Katie Villalobos MD on 08/08/2021 4:46 PM PDT Approved by: Katie Villalobos MD on 08/08/2021 4:46 PM PDT Station ID: [id number]
[2021-08-08 18:17] VITALS: BP 141/63
== END 2021-08-08 18:24 | disposition home or self-care (01) ==
LOC: ED 12:06
DX: R41.82 Altered mental status, unspecified (principal); I10 Essential (primary) hypertension; Z20.822 Contact with and (suspected) exposure to COVID-19
CPT/HCPCS: 36415; 70450; 70496; 70498; 70551; 80053; 81003; 82803; 83690; 84443; 85025; 85610; 87635; 93005; 99284; 99285; G0480; Q9967; 80320; 81001; 87086

== ENCOUNTER 2021-08-16 10:45 | Outpatient (CLI) | payer MEDICARE, BC ==
--- NOTE | 2021-08-16 16:13 | DEXA Report ---
PROCEDURE: Dexa Spine and/or Hip INDICATIONS: OSTEOPENIA TECHNIQUE: Dual energy x-ray absorptiometry (DXA) was performed on a [employer] System. Regions measur ed are the AP Spine, femoral neck, and if needed forearm. COMPARISON: 05/30/2017. FINDINGS: Lumbar Spine: Bone Mineral Density 0.950 g/cm/cm,T score -1.9, osteopenia Left Hip: Bone Mineral Density 0.864 g/cm/cm,T score -1.1, osteopenia Left Femoral Neck: Bone Mineral Density 0.803 g/cm/cm, T score -1.7, osteopenia (T score greater or equal to -1.0: NORMAL) (T score from -1.1 to -2.4: OSTEOPENIA) (T score less than or equal to -2.5 to: OSTEOPOROSIS) Impression: Osteopenia. Patient's bone marrow density has decreased 2.2% in the interval since prior exam obtaine d 05/30/2017. Patients with diagnosis of osteoporosis or osteopenia should have regular bone mineral density assess ment. For those eligible for Medicare, routine testing is allowed once every 2 years. Testing frequ ency can be increased for patients who have rapidly progressing disease or for those who are receivin g medical therapy to restore bone mass. Reviewed by: Yanira Baird MD, PhD on 08/16/2021 4:11 PM PDT Approved by: Yanira Baird MD, PhD on 08/16/2021 4:11 PM PDT Station ID: [id number]
== END 2021-08-16 10:46 | disposition home or self-care (01) ==
LOC: DI 10:45
PROVIDERS: ATTEND Family Medicine
DX: M85.89 Other specified disorders of bone density and structure, multiple sites (principal)

== ENCOUNTER 2021-10-02 14:30 | Outpatient (CLI) | payer MEDICARE, BC ==
--- NOTE | 2021-10-03 17:39 | Mammography Report ---
BILATERAL DIGITAL SCREENING MAMMOGRAM 3D/2D: 10/02/2021 CLINICAL: Family history of breast cancer. Routine screening. Comparison is made to exams dated: 06/20/2020 mammogram, 02/03/2019 mammogram, 01/30/2018 mammogram, 1 mammogram, 12/07/2015 mammogram, and 09/28/2014 mammogram - [facility]. Th e tissue of both breasts is heterogeneously dense. This may lower the sensitivity of mammography. No significant masses, calcifications, or other findings are seen in either breast. There has been no significant interval change. IMPRESSION: NEGATIVE There is no mammographic evidence of malignancy. A 1 year screening mammogram is recommended. Based on the Tyrer Cuzick model (a risk assessment model) the patients lifetime risk is 13.5% and he r 10 year risk is 11.1%. According to the ACR, ACS, and NCCN guidelines, an annual breast MRI exam al [place] with mammogram is recommended if the patients lifetime risk is 20% or greater. This exam was interpreted at Station ID: [id number]. NOTE: For mammograms, a report in lay terms will be sent to the patient. Approximately 15% of breast malignancies will not be visualized mammographically. In the management of a palpable breast mass, a negative mammogram must not discourage biopsy of a clinically suspicious lesion. Electronically Signed By: Yuridia herrera/bernarda:10/02/2021 17:21:19 ACR BI-RADS Category 1: Negative 3341F PARENCHYMAL PATTERN: (D) - The breast(s) demonstrate(s) heterogeneously dense fibroglandular bren lopez. BI-RADS CATEGORY: (1) - 1 RECOMMENDATION: (ANNUAL) - Recommend routine annual screening mammography. [id number] 1 year screening LATERALITY: (B)
== END 2021-10-02 14:31 | disposition home or self-care (01) ==
LOC: DI.N 14:30
DX: Z12.31 Encounter for screening mammogram for malignant neoplasm of breast (principal); Z80.3 Family history of malignant neoplasm of breast

== ENCOUNTER 2022-10-22 07:35 | Outpatient (CLI) | payer MEDICARE, BC ==
[2022-10-22 12:36] LABS: BASOPHILS % (AUTO) 0.8 %; EOSINOPHILS # (AUTO) 0.1 10^3/uL (0.0-0.7); EOSINOPHILS % (AUTO) 2.2 %; HCT - HEMATOCRIT 44.2 % (37.0-47.0); HGB - HEMOGLOBIN 14.1 g/dL (12.0-16.0); LYMPHOCYTES # (AUTO) 1.5 10^3/uL (1.5-3.5); LYMPHOCYTES % (AUTO) 29.4 %; MEAN CORPUSCULAR HEMOGLOBIN 29.9 pg (27.0-31.0); MEAN CORPUSCULAR HGB CONC 31.9 g/dL (32.0-36.0); MEAN CORPUSCULAR VOLUME 93.8 fL (81.0-99.0); MEAN PLATELET VOLUME 11.2 fL (7.9-10.8); MONOCYTES # (AUTO) 0.5 10^3/uL (0.0-1.0); MONOCYTES % (AUTO) 8.9 %; NEUTROPHILS % (AUTO) 58.5 %; PLT - PLATELET COUNT 214 10^3/uL (130-450); RED BLOOD COUNT 4.71 10^6/uL (4.20-5.40); RED CELL DISTRIBUTION WIDTH 12.7 % (12.0-15.0); WHITE BLOOD COUNT 5.1 x10^3/uL (4.8-10.8)
[2022-10-22 13:04] LABS: ALBUMIN 4.5 g/dL (3.2-5.5); ALBUMIN/GLOBULIN RATIO 1.7 (1.0-2.2); ALKALINE PHOSPHATASE 63 IU/L (42-121); ALT ALANINE AMINOTRANSFERASE 15 IU/L (10-60); AST ASPARTATE AMINOTRANSFERASE 18 IU/L (10-42); BILIRUBIN,TOTAL 0.7 mg/dL (0.2-1.0); BUN - BLOOD UREA NITROGEN 20 mg/dL (6-20); CALCIUM 9.9 mg/dL (8.5-10.3); CARBON DIOXIDE - CO2 32 mmol/L (21-32); CHLORIDE 106 mmol/L (101-111); CHOL/HDL RATIO 2.7 (<4.4); CHOLESTEROL 222 mg/dL; CREATININE 0.8 mg/dL (0.6-1.3); GFR - MDRD 70 (>89); GLUCOSE 94 mg/dL (74-104); HDL CHOLESTEROL 83 mg/dL; LDL CHOLESTEROL,CALCULATED 111 mg/dL; LDL/HDL RATIO 1.3 (<4.4); POTASSIUM 4.1 mmol/L (3.5-4.5); SODIUM 141 mmol/L (135-145); TOTAL PROTEIN 7.1 g/dL (6.4-8.9); TRIGLYCERIDES 140 mg/dL (48-352); VLDL CHOLESTEROL 28 mg/dL
== END 2022-10-22 07:36 | disposition home or self-care (01) ==
LOC: LAB.N 07:35
PROVIDERS: ATTEND Physician Assistant Medical
DX: E78.5 Hyperlipidemia, unspecified (principal); I10 Essential (primary) hypertension
CPT/HCPCS: 36415; 80053; 80061; 83721; 85025

== ENCOUNTER 2022-10-28 09:19 | Outpatient (CLI) | payer MEDICARE, BC ==
--- NOTE | 2022-10-29 09:11 | Mammography Report ---
BILATERAL DIGITAL SCREENING MAMMOGRAM 3D/2D: 10/28/2022 CLINICAL: Family history of breast cancer. Routine screening. Comparison is made to exams dated: 10/02/2021 mammogram, 06/20/2020 mammogram, 02/03/2019 mammogram, mammogram, 01/08/2017 mammogram, and 12/07/2015 mammogram - [facility]. Both breasts are heterogeneously dense, which may obscure small masses (category c / 51-75% glandular tissue). There is a stable benign focal asymmetry in the right breast. No significant masses, calcifications, or other findings are seen in either breast. There has been no significant interval change. IMPRESSION: BENIGN There is no mammographic evidence of malignancy. A 1 year screening mammogram is recommended. Based on the Tyrer Cuzick model (a risk assessment model) the patients lifetime risk is 12.8% and he r 10 year risk is 11.5%. According to the ACR, ACS, and NCCN guidelines, an annual breast MRI exam al [place] with mammogram is recommended if the patients lifetime risk is 20% or greater. This exam was interpreted at Station ID: [id number]. NOTE: For mammograms, a report in lay terms will be sent to the patient. Approximately 15% of breast malignancies will not be visualized mammographically. In the management of a palpable breast mass, a negative mammogram must not discourage biopsy of a clinically suspicious lesion. Electronically Signed By: Gurpreet crow/bernarda:10/28/2022 13:15:12 letter sent: No_Letter ACR BI-RADS Category 2: Benign Finding(s) 3342F PARENCHYMAL PATTERN: (D) - The breast(s) demonstrate(s) heterogeneously dense fibroglandular parenchy ma. BI-RADS CATEGORY: (2) - 2 Mammogram [id number] 1 year screening LATERALITY: (B)
== END 2022-10-28 09:20 | disposition home or self-care (01) ==
LOC: DI.N 09:19
DX: Z12.31 Encounter for screening mammogram for malignant neoplasm of breast (principal); Z80.3 Family history of malignant neoplasm of breast

== ENCOUNTER 2023-11-11 08:47 | Outpatient (CLI) | payer MEDICARE, BC ==
--- NOTE | 2023-11-12 08:16 | Mammography Report ---
BILATERAL DIGITAL SCREENING MAMMOGRAM 3D/2D: 11/11/2023 CLINICAL: Routine screening. Family history of breast cancer. Comparison is made to exams dated: 10/28/2022 mammogram, 10/02/2021 mammogram, 06/20/2020 mammogram, and 02/03/2019 mammogram - [facility]. Both breasts are heterogeneously dense, which may obscure small masses (category c / 51-75% glandular tissue). No significant masses, calcifications, or other findings are seen in either breast. There has been no significant interval change. IMPRESSION: NEGATIVE There is no mammographic evidence of malignancy. A 1 year screening mammogram is recommended. Based on the Tyrer Cuzick model (a risk assessment model) the patient's lifetime risk is 11.8% and he r 10 year risk is 11.8%. According to the ACR, ACS, and NCCN guidelines, an annual breast MRI exam al [place] with mammogram is recommended if the patient's lifetime risk is 20% or greater. This exam was interpreted at Station ID: [id number]. NOTE: For mammograms, a report in lay terms will be sent to the patient. Approximately 15% of breast malignancies will not be visualized mammographically. In the management of a palpable breast mass, a negative mammogram must not discourage biopsy of a clinically suspicious lesion. Electronically Signed By: Jose aguilar/bernarda:11/11/2023 16:41:39 letter sent: No_Letter ACR BI-RADS Category 1: Negative 3341F PARENCHYMAL PATTERN: (D) - The breast(s) demonstrate(s) heterogeneously dense fibroglandular bren lopez. BI-RADS CATEGORY: (1) - 1 RECOMMENDATION: (ANNUAL) - Recommend routine annual screening mammography. [id number] 1 year screening LATERALITY: (B)
== END 2023-11-11 08:48 | disposition home or self-care (01) ==
LOC: DI.N 08:47
DX: Z12.31 Encounter for screening mammogram for malignant neoplasm of breast (principal); Z80.3 Family history of malignant neoplasm of breast; R92.333 Mammographic heterogeneous density, bilateral breasts